=== PATIENT | female | born 1980 | race African-American/Black ===

== ENCOUNTER 2017-03-30 09:49 | Emergency (ER) | payer MEDICAID | END 2017-03-30 11:50 | disposition home or self-care (01) | LOC: D.ER 09:49 | DX: S39.012A Strain of muscle, fascia and tendon of lower back, initial encounter (principal); V43.62XA Car passenger injured in collision with other type car in traffic accident, initial encounter; Y93.89 Activity, other specified; Y92.410 Unspecified street and highway as the place of occurrence of the external cause ==